=== PATIENT | male | born 1990 | race African-American/Black ===

== ENCOUNTER → 2024-05-11 | Outpatient (CLI) | payer OTHER | LOC: M PLAIMG 06:43 | PROVIDERS: ATTEND Emergency Medicine | DX: M76.9 Unspecified enthesopathy, lower limb, excluding foot (principal) ==

== ENCOUNTER → 2024-06-04 | Outpatient (CLI) | payer OTHER | LOC: M PLAIMG 15:15 → EDUNIT# 16:00 | PROVIDERS: ATTEND Emergency Medicine | DX: M76.9 Unspecified enthesopathy, lower limb, excluding foot (principal); S86.891A Other injury of other muscle(s) and tendon(s) at lower leg level, right leg, initial encounter; X58.XXXA Exposure to other specified factors, initial encounter; Y92.9 Unspecified place or not applicable; Y93.9 Activity, unspecified; Y99.9 Unspecified external cause status ==

== ENCOUNTER → 2024-09-15 | Outpatient (CLI) | payer OTHER ==
[~2024-09-15] MED LIST: OMEP40CA4 PO
== END ==
LOC: M RAD 08:14
PROVIDERS: ATTEND Podiatrist
DX: S92.425 Nondisplaced fracture of distal phalanx of left great toe (principal); X58.XXXA Exposure to other specified factors, initial encounter; Y92.9 Unspecified place or not applicable; Y93.9 Activity, unspecified; Y99.9 Unspecified external cause status

== ENCOUNTER 2024-10-11 07:10 | Day surgery (SDC) | payer OTHER ==
[~2024-10-11] VITALS: Ht 172.7 cm; Wt 94.0 kg
[2024-10-11 08:26] VITALS: TEMP 98.6
[2024-10-11 09:15] VITALS: BP 142/77; O2SAT 100
== END 2024-10-11 09:30 | disposition home or self-care (01) ==
LOC: M OPP 07:10
PROVIDERS: ATTEND Surgery
DX: R13.10 Dysphagia, unspecified (principal); Z79.899 Other long term (current) drug therapy